=== PATIENT | male | born 1950 | race Two or more races ===

== ENCOUNTER 2022-06-16 11:39 | Inpatient (IN) | payer OTHER ==
[~2022-06-16] VITALS: Ht 182.9 cm; Wt 90.2 kg
[2022-06-16] MEDS ORDERED: SODIUM CHLORIDE 0.9% 1,000 ML IV ONE (11:45)
[2022-06-16 12:11] LABS: Basophils # (auto) 0 10 ^3/uL (0-0.2); Basophils % (auto) 0.8 % (0.0-2.0); Eosinophils # (auto) 0.2 10 ^3/uL (0-0.8); Eosinophils % (auto) 4.5 % (0.0-7.0); Hematocrit 41.4 % (41.0-53.0); Hemoglobin 14.1 g/dL (13.5-17.5); Lymphocytes # (auto) 0.8 10 ^3/uL (0.4-5.4); Lymphocytes % (auto) 16.3 % (10.0-50.0); Mean Corpuscular Hemoglobin 32.9 pg (28.0-32.0); Mean Corpuscular Hgb Conc. 34.2 g/dL (32.0-36.0); Monocytes # (auto) 0.4 10 ^3/uL (0-1.3); Monocytes % (auto) 7.3 % (0.0-12.0); Neutrophils # (auto) 3.6 10 ^3/uL (1.6-8.6); Neutrophils % (auto) 71.1 % (37.0-80.0); Nucleated Red Blood Cells % 0.1 %; Red Blood Cells 4.31 10^6/uL (4.5-5.90); Red Cell Distribution Width 12.8 % (11.8-14.3)
[2022-06-16 12:49] LABS: Albumin 4.2 g/dL (3.4-5.0); Calcium 9.2 mg/dL (8.5-10.1); Potassium 4.4 mmol/L (3.5-5.1)
[2022-06-16 12:54] LABS: BUN/Creatinine Ratio 10.7 (10.0-20.0); Bilirubin, Total 0.6 mg/dL (0.2-1.0); Total Protein 6.5 g/dL (6.4-8.2)
[2022-06-16] MEDS ORDERED: SODIUM CHLORIDE 0.9% 1,000 ML IV SCH (14:15)
[2022-06-16] MEDS ORDERED: HYDROcodone-ACET 5/325MG TAB PO PRN (14:15)
[2022-06-16] MEDS ORDERED: ONDANSETRON HCL 4 MG/2 ML VIAL IV PRN (14:15)
[2022-06-16] MEDS ORDERED: TAMS0.4C36 PO (19:44)
[2022-06-16] MEDS ORDERED: OMEP20TA PO (19:44)
[2022-06-16] MEDS ORDERED: AMIO200T33 PO (19:44)
[2022-06-16] MEDS ORDERED: ACET-1156 PO (19:44)
[2022-06-16] MEDS ORDERED: RIVA20TA PO (19:44)
[2022-06-16] MEDS ORDERED: ROSU20TA14 PO (19:44)
[2022-06-16] MEDS ORDERED: ACETAMINOPHEN 325 MG TAB PO PRN (20:15)
[2022-06-17] VITALS (9 sets, daily range): BP systolic 123–165; BP diastolic 62–91
[2022-06-17] MEDS ORDERED: ALPR0.5T PO (03:20)
[2022-06-17] MEDS: ACETAMINOPHEN 325 MG TAB PO PRN ×2 (06:38→23:30)
[2022-06-17] MEDS ORDERED: PNEUMOCOCCAL VACC POLYS 25 MCG/0.5 ML VIAL IM ONE (08:00)
[2022-06-17] MEDS: AMIODARONE HCL 200 MG TAB PO SCH (09:57)
[2022-06-17] MEDS: ATORVASTATIN 20 MG TAB PO SCH (09:58)
[2022-06-17] MEDS: PANTOPRAZOLE 40 MG TAB PO SCH (09:59)
[2022-06-17] MEDS: TAMSULOSIN HYDROCHLORIDE 0.4 MG CAP PO SCH ×2 (18:00→18:49)
[2022-06-17] MEDS ORDERED: RIVAROXABAN 20 MG TAB PO SCH (18:00)
[2022-06-18 05:00] VITALS: BP 114/66
[2022-06-18 08:00] VITALS: BP 112/72
[2022-06-18 09:00] VITALS: BP 112/72
[2022-06-18] MEDS: ATORVASTATIN 20 MG TAB PO SCH (09:38)
[2022-06-18] MEDS: PANTOPRAZOLE 40 MG TAB PO SCH (09:38)
[2022-06-18] MEDS: AMIODARONE HCL 200 MG TAB PO SCH (09:38)
== END 2022-06-18 11:50 | disposition home health service (06) | DRG 312 ==
LOC: ER 11:39 → TELE 14:49 → TELE-WESTW 23:28
PROVIDERS: ADMIT Internal Medicine; ATTEND Internal Medicine
DX: R55 Syncope and collapse (principal); R00.1 Bradycardia, unspecified; E78.5 Hyperlipidemia, unspecified; F17.200 Nicotine dependence, unspecified, uncomplicated; I10 Essential (primary) hypertension; F40.8 Other phobic anxiety disorders; I48.0 Paroxysmal atrial fibrillation; K21.9 Gastro-esophageal reflux disease without esophagitis; F41.9 Anxiety disorder, unspecified; N40.0 Benign prostatic hyperplasia without lower urinary tract symptoms; Z79.01 Long term (current) use of anticoagulants; Z82.49 Family history of ischemic heart disease and other diseases of the circulatory system; Z83.3 Family history of diabetes mellitus
CPT/HCPCS: 36415; 70450; 70551; 71045; 80053; 84484; 85025; 93306; 96360; 96361; G0378